=== PATIENT | female | born 1945 | race Caucasian/White ===

== ENCOUNTER → 2021-06-04 10:20 | Outpatient (CLI) | payer MEDICARE, BC, SELFPAY ==
[2021-06-08 09:40] LABS: Fecal Immunochemical Test Negative (Negative)
== END ==
PROVIDERS: PCP Physician Assistant; Visit Provider Physician Assistant
DX: Z12.11 Encounter for screening for malignant neoplasm of colon (principal)
CPT/HCPCS: 82274

== ENCOUNTER → 2021-07-01 09:03 | Outpatient (CLI) | payer MEDICARE, BC, SELFPAY ==
[2021-07-01 19:25] LABS: Add Manual Diff / Slide Review NO; Basophils Absolute Auto 100 /uL (0-100); Basophils Percent Auto 2.3 % (0-2); Eosinophils Absolute Auto 100 /uL (0-450); Eosinophils Percent Auto 2.3 % (2-4); Hematocrit 43.1 % (36-46); Hemoglobin 14.2 g/dL (12.0-16.0); Lymphocytes Absolute Auto 1800 /uL (1100-4500); Mean Corpuscular HGB Conc 32.9 % (30-36); Mean Corpuscular Hemoglobin 32.1 PG (26-34); Mean Corpuscular Volume 97.6 fL (80-100); Monocytes Absolute Auto 400 /uL (0-900); Monocytes Percent Auto 10.5 % (3-14); Neutrophils Absolute Auto 1200 /uL (1500-7000); Neutrophils Percent Auto 32.9 % (50-75); Platelet Count 190 X10^3/uL (150-400); Red Blood Cell Count 4.41 X10^6/uL (4.0-5.2); Red Cell Distribution Width 13.7 % (11.6-14.8); White Blood Cell Count 3.5 X10^3/uL (4.5-11.0)
[2021-07-01 19:42] LABS: Alanine Aminotransferase 24 IU/L (<35); Albumin Globulin Ratio 1.7 (1.0-2.8); Alkaline Phosphatase 60 U/L (38-126); Aspartate Aminotransferase 40 IU/L (14-36); BUN Creatinine Ratio 27.4 (6-22); Bilirubin Total 0.6 mg/dL (0.2-1.3); Blood Urea Nitrogen 20 mg/dL (7-17); Calcium 9.7 mg/dL (8.4-10.2); Carbon Dioxide 31 mmol/L (22-32); Chloride 106 mmol/L (98-107); Cholesterol 197 mg/dL (140-199); Estimated Glomerular Filt Rate > 60.0 mL/min (>60); Globulin 2.4 g/dL (1.7-4.1); Glucose 81 mg/dL (80-110); HDL Cholesterol 86 mg/dL (40-60); HEMOLYSIS < 15 (0-50); LDL Cholesterol Calculated 102 mg/dL (<100); Potassium 4.1 mmol/L (3.4-5.1); Sodium 140 mmol/L (137-145); Total Protein 6.4 g/dL (6.3-8.2); Triglycerides 46 mg/dL (35-150)
[2021-07-01 19:51] LABS: NT-proBNP (BNP-Adult 18+) 112 pg/mL (<125)
[2021-07-01 20:11] LABS: Thyroid Stimulating Hormone 1.46 uIU/mL (0.47-4.68)
== END ==
PROVIDERS: PCP Physician Assistant; Visit Provider Physician Assistant
DX: E78.5 Hyperlipidemia, unspecified (principal); R06.00 Dyspnea, unspecified; Z86.2 Personal history of diseases of the blood and blood-forming organs and certain disorders involving the immune mechanism
CPT/HCPCS: 80053; 80061; 83880; 84443; 85025

== ENCOUNTER → 2021-09-11 09:24 | Outpatient (CLI) | payer MEDICARE, BC, SELFPAY ==
[2021-09-11 18:58] LABS: Add Manual Diff / Slide Review NO; Basophils Absolute Auto 0 /uL (0-100); Basophils Percent Auto 0.8 % (0-2); Eosinophils Absolute Auto 100 /uL (0-450); Eosinophils Percent Auto 2.5 % (2-4); Hematocrit 43.5 % (36-46); Hemoglobin 14.5 g/dL (12.0-16.0); Lymphocytes Absolute Auto 1700 /uL (1100-4500); Lymphocytes Percent Auto 44.1 % (25-40); Mean Corpuscular HGB Conc 33.4 % (30-36); Mean Corpuscular Hemoglobin 32.2 PG (26-34); Mean Corpuscular Volume 96.5 fL (80-100); Monocytes Absolute Auto 400 /uL (0-900); Monocytes Percent Auto 10.3 % (3-14); Neutrophils Absolute Auto 1700 /uL (1500-7000); Neutrophils Percent Auto 42.3 % (50-75); Platelet Count 186 X10^3/uL (150-400); Red Blood Cell Count 4.51 X10^6/uL (4.0-5.2); Red Cell Distribution Width 13.2 % (11.6-14.8); White Blood Cell Count 3.9 X10^3/uL (4.5-11.0)
[2021-09-11 19:35] LABS: Alanine Aminotransferase 21 IU/L (<35); Albumin Globulin Ratio 1.5 (1.0-2.8); Alkaline Phosphatase 61 U/L (38-126); Aspartate Aminotransferase 34 IU/L (14-36); BUN Creatinine Ratio 20.5 (6-22); Bilirubin Total 0.4 mg/dL (0.2-1.3); Blood Urea Nitrogen 16 mg/dL (7-17); Calcium 9.7 mg/dL (8.4-10.2); Carbon Dioxide 33 mmol/L (22-32); Chloride 103 mmol/L (98-107); Estimated Glomerular Filt Rate > 60.0 mL/min (>60); Globulin 2.6 g/dL (1.7-4.1); Glucose 88 mg/dL (80-110); HEMOLYSIS < 15 (0-50); Potassium 4.4 mmol/L (3.4-5.1); Sodium 141 mmol/L (137-145); Total Protein 6.6 g/dL (6.3-8.2)
== END ==
PROVIDERS: PCP Physician Assistant; Visit Provider Physician Assistant
DX: R74.8 Abnormal levels of other serum enzymes (principal); R06.00 Dyspnea, unspecified; R79.89 Other specified abnormal findings of blood chemistry
CPT/HCPCS: 80053; 85025

== ENCOUNTER → 2022-01-11 09:08 | Outpatient (CLI) | payer MEDICARE, BC, SELFPAY ==
[2022-01-12 22:08] LABS: COVID19 - ORCAS (NP or Nasal) Negative (Negative)
== END ==
PROVIDERS: PCP Physician Assistant; Visit Provider Physician Assistant
DX: Z20.822 Contact with and (suspected) exposure to COVID-19 (principal)
CPT/HCPCS: C9803; U0003

== ENCOUNTER 2022-06-10 11:15 | Outpatient (RCR) | payer MEDICARE, BC, SELFPAY ==
--- NOTE | 2022-04-14 15:38 | PT.OPPOC ---
Physical, Occupational & Speech Therapy At [facility] Current Diagnoses Malignant melanoma of right upper limb, including shoulder (04/14/22) Visit Care Team Role Provider Type Tamara Pina PA-C Family Provider Advanced Developer Programmer Primary Care Provider Specialty: Medical Address: [address] [place] [address], [id number] Email: [email or web address] Concepcion Garrido PA-C Attending Provider Non-Staff Referring Provider Specialty: Medical Address: [address] [place] [address], [place]: [id number], [place], [address] Email: Plan Of Care PT-OP-T Assessment and Plan Start: 04/14/22 08:29 Freq: Status: Active Protocol: Document 04/14/22 11:45 AW (Rec: 04/18/22 13:21 AW [id number]) Physical Therapy Assessment Rehab Potential Rehabilitation Potential Excellent Evaluation Complexity Number of Personal Factors/Comorbidities 1-2 Number of Body Systems Impaired 1-2 Clinical Presentation at Evaluation Evolving Impairments Impairments Edema,Pain,Posture,ROM,Soft Tissue Mobility,Strength Other Concerns Barriers to Rehabilitation Pt self-reports memory impairment but has no formal diagnosis. Goals Four Impairment lymphedema risk Garbage Collector Driver Goal (LTG) Pt will teach back about lymphedema precautions and signs of impaired lymph return . LTG Duration 06/14/22 Three Impairment strength Garbage Collector Driver Goal (LTG) Pt will improve RUE strength equal to LUE to promote return to recreational activities such as swimming. LTG Duration 06/14/22 Two Impairment ROM Long-Term Goal (LTG) Pt will improve RUE ROM to within 5 degrees of LUE in abduction, extension, and internal rotation for improved ease of self-care. LTG Duration 06/14/22 One Impairment lacks HEP Garbage Collector Driver Goal (LTG) Pt will be independent with HEP to improve RUE ROM and strength. 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 She presents with decreased ROM and strength in her RUE which are expected to respond to skilled physical therapy treatment to improve her ability to complete self-care and recreational activities. Pt was measured for lymphedema assessment and all measurements are within 0.5-1. 0 cm of the unaffected side. Plan of care will include education on risk reduction for lymphedema. Physical Therapy Plan Frequency and Duration Frequency of Treatment 1-2x/week Duration of Treatment 2 months Plan of Care Start Date 04/14/22 Plan of Care End Date 06/14/22 Therapeutic Interventions Therapeutic Interventions Home Exercise Program,Joint Mobilizations,Lymphedema Management,Manual Therapy,Self -Care/Home Management,Soft Tissue Mobilization,Taping, Therapeutic Activities, Therapeutic Exercises Modalities Cold Pack/Ice Massage,Hot Packs,Ultrasound Next Visit Focus/Plan Next Note Type Treatment Note Next Visit Plan Review lymphedema precautions and provide handout. Progress scapular stabilization. Consider pulleys, pec stretch, supine lower trap activation. Plan of Care Dates Plan of Care Start Date 04/14/22 Plan of Care End Date 06/14/22 Electronically Signed by: Sharmila Avila, PT 04/18/22 3110 If you are in agreement with this Plan of Care, please return a signed and dated copy. I have reviewed this Plan of Care and certify that the skilled therapy services above are required to meet the patient?s needs. Physician Signature Date Printed Name and Credentials Clinical Instructor Signature Printed Name and Credentials
--- NOTE | 2022-04-14 15:38 | PT.OIE ---
Current Diagnoses Malignant melanoma of right upper limb, including shoulder (04/14/22) Past Medical History (Last Updated 06/03/21 @ 15:07 by Tamara Pina PA-C) Exertional dyspnea Onychomycosis Sprain of right rotator cuff capsule Weakness Visit Care Team Role Provider Type Tamara Pina PA-C Family Provider Advanced Pallet Rectifier Primary Care Provider Specialty: Medical Address: [address] [place] [address], [id number] Email: [email or web address] Concepcion Garrido PA-C Attending Provider Non-Staff Referring Provider Specialty: Medical Address: [address] [place] [address], [place]: [id number], [place], [address] Email: Physical Therapy Initial Evaluation PT-OP-A Visit Information Start: 04/14/22 08:29 Freq: Status: Active Protocol: Document 04/14/22 11:45 AW (Rec: 04/14/22 08:40 AW [id number]) Out-Patient Physical Therapy Visit Information Visit Information Visit Type Initial Evaluation Visit Start Time 10:35 Visit Stop Time 11:45 Total Visit Minutes 70 Visit Number 1 Number of SYSTEMS SOFTWARE ENGINEER Visits 0 Evaluation Information Evaluation Date 04/14/22 PT-OP-B Current Condition Start: 04/14/22 08:29 Freq: Status: Active Protocol: Document 04/14/22 11:45 AW (Rec: 04/14/22 08:40 AW [id number]) Current Condition History of Current Condition Onset Date January 2022 Current Complaints decreased R shoulder and neck ROM, needs lymphedema screen/ education History of Current Condition On 01/14/22, Iraj had right axillary sentinel lymph node biopsy x 5 and wide local excision of right upper lateral arm for melanoma. Iraj had no post op pain except some mild axillary tenderness. She used ice to minimize swelling. She travelled to [place] for 2 months. She had rotator cuff surgery 5 -10 years ago (pt unable to recall exact date due to memory loss.). When she was 7 yo, she severed a tendon in her right pinky finger and her whole arm was immobilized for months. While in the cast, she fractured her clavicle. She believes she picked up some bad postural habits during that time frame. Prior Treatments and Tests Plan to follow up every four months with dermatology. Treatment Goals Patient/Caregiver Goals Pt hopes to preserve or improve her shoulder ROM. Ultimately, she would like to get back to swimming. 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 OP-PT Pain Assessment Pain Assessment Grid Paper Pain Assessment Grid Completed Yes: Pt notes R axillary and R wrist pain with stretches PT-OP-F Manual Assessment Start: 04/14/22 08:29 Freq: Status: Active Protocol: Document 04/14/22 11:45 AW (Rec: 04/14/22 12:08 AW [id number]) Manual Assessments Soft Tissue Assessment Soft Tissue Mobility Assessment Hypertonicity noted at bilateral upper traps and right cervical paraspinals, R levator scap. Mild axillary cording noted in pectoral/lat interval which may be contributing to ROM deficits. PT-OP-J Posture/Palpation/Skin Start: 04/14/22 08:29 Freq: Status: Active Protocol: Document 04/14/22 11:45 AW (Rec: 04/14/22 12:08 AW [id number]) Posture Evaluation Comments Posture Comments Pt sits and stands with forward head and rounded shoulders. Right scapula is anteriorly tilted and winged. Left scapula also wings but is less affected. Skin Assessment Incisional Assessment Incision Appearance/Comments Right lateral shoulder incision is well healed with some evidence of adhesion. Axillary incision is well healed with good mobility. PT-OP-K Range of Motion Start: 04/14/22 08:29 Freq: Status: Active Protocol: Document 04/14/22 11:45 AW (Rec: 04/14/22 12:15 AW [id number]) Cervical Spine Range of Motion Cervical Spine Active Degrees Testing Position Sitting Flexion 50 Extension 40 Rotation Left 53 Rotation Right 40 Lateral Flexion Left 30 Lateral Flexion Right 18 ROM Limitations Soft Tissue Tightness Shoulder Goniometric Range of Motion Shoulder Right Active Shoulder ROM WFL Yes Testing Position Sitting Flexion 154 Extension 25 Abduction 160 Internal Rotation Behind Back (text) T4 Comments Flexion and abduction wtih significant shoulder hiking. Left Active Shoulder ROM WFL Yes Testing Position Sitting Flexion 160 Extension 55 Abduction 173 Internal Rotation Behind Back (text) C7 Elbow/Forearm Range of Motion Elbow/Forearm bilat Elbow/Forearm ROM WFL Yes PT-OP-M Strength Start: 04/14/22 08:29 Freq: Status: Active Protocol: Document 04/14/22 11:45 AW (Rec: 04/14/22 12:15 AW [id number]) Shoulder Strength Shoulder Manual Muscle Testing Right Flexion 4+ Good+ Extension 4+ Good+ Abduction (C5) 4+ Good+ External Rotation 4+ Good+ Internal Rotation 4+ Good+ Left Flexion 5 Normal Extension 5 Normal Abduction (C5) 5 Normal External Rotation 5 Normal Internal Rotation 5 Normal PT-OP-N Lymphedema Start: 04/14/22 08:29 Freq: Status: Active Protocol: Document 04/14/22 11:45 AW (Rec: 04/14/22 12:15 AW [id number]) Lymphedema Measurements Upper Extremity Circumference Measurements Right Affected MCP 18 cm Dorsum of Hand 18.1 cm Wrist 16.6 cm 10 cm From Wrist Crease 19.4 cm 20 cm From Wrist Crease 24.7 cm 30 cm From Wrist Crease 26.8 cm 40 cm From Wrist Crease 27.8 cm Elbow Joint 25 cm Left Unaffected MCP 18 cm Dorsum of Hand 18.3 cm Wrist 16.6 cm 10 cm From Wrist Crease 19.3 cm 20 cm From Wrist Crease 24.3 cm 30 cm From Wrist Crease 26 cm 40 cm From Wrist Crease 27.3 cm Elbow Joint 24.1 cm PT-OP-Q Treatments Start: 04/14/22 08:29 Freq: Status: Active Protocol: Document 04/14/22 11:45 AW (Rec: 04/18/22 13:21 AW [id number]) Therapeutic Exercises Sitting Exercises UT stretch Sitting Exercise Name UT stretch Side bilateral Reps/Minutes 30 SH x 4 Comments HEP scapular retraction Sitting Exercise Name scapular retraction Side bilateral Resistance AROM Reps/Minutes 5SH x 10 Comments HEP Standing Exercises wall slides Standing Exercise Name wall slides - flexion, abduction Side right Comments HEP AAROM Standing Exercise Name AAROM - extension Side right Equipment Used dowel Reps/Minutes 5 SH x 10 Comments HEP Self-Care/Home Management Treatment Education Patient Education Home Exercise Program Other Education Reviewed results of evaluation and proposed plan of care centered on ROM and strength for right shoulder and trunk. Pt understood and agreed. Lymphedema Treatment Patient Education Lymphedema Pathology verbal education Lymphedema Precautions handout provided Other Educated pt on lymphatic system function, risk of lymphedema, signs to be alert for. PT-OP-T Assessment and Plan Start: 04/14/22 08:29 Freq: Status: Active Protocol: Document 04/14/22 11:45 AW (Rec: 04/18/22 13:21 AW [id number]) Physical Therapy Assessment Rehab Potential Rehabilitation Potential Excellent Evaluation Complexity Number of Personal Factors/Comorbidities 1-2 Number of Body Systems Impaired 1-2 Clinical Presentation at Evaluation Evolving Impairments Impairments Edema,Pain,Posture,ROM,Soft Tissue Mobility,Strength Other Concerns Barriers to Rehabilitation Pt self-reports memory impairment but has no formal diagnosis. Goals Four Impairment lymphedema risk Associate Professor Of Theatre Goal (LTG) Pt will teach back about lymphedema precautions and signs of impaired lymph return . LTG Duration 06/14/22 Three Impairment strength Correction Goal (LTG) Pt will improve RUE strength equal to LUE to promote return to recreational activities such as swimming. LTG Duration 06/14/22 Two Impairment ROM Correction Goal (LTG) Pt will improve RUE ROM to within 5 degrees of LUE in abduction, extension, and internal rotation for improved ease of self-care. LTG Duration 06/14/22 One Impairment lacks HEP Correction Goal (LTG) Pt will be independent with HEP to improve RUE ROM and strength. 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 She presents with decreased ROM and strength in her RUE which are expected to respond to skilled physical therapy treatment to improve her ability to complete self-care and recreational activities. Pt was measured for lymphedema assessment and all measurements are within 0.5-1. 0 cm of the unaffected side. Plan of care will include education on risk reduction for lymphedema. Physical Therapy Plan Frequency and Duration Frequency of Treatment 1-2x/week Duration of Treatment 2 months Plan of Care Start Date 04/14/22 Plan of Care End Date 06/14/22 Therapeutic Interventions Therapeutic Interventions Home Exercise Program,Joint Mobilizations,Lymphedema Management,Manual Therapy,Self -Care/Home Management,Soft Tissue Mobilization,Taping, Therapeutic Activities, Therapeutic Exercises Modalities Cold Pack/Ice Massage,Hot Packs,Ultrasound Next Visit Focus/Plan Next Note Type Treatment Note Next Visit Plan Review lymphedema precautions and provide handout. Progress scapular stabilization. Consider pulleys, pec stretch, supine lower trap activation.
--- NOTE | 2022-04-20 12:16 | PT.OTN ---
Current Diagnoses Malignant melanoma of right upper limb, including shoulder (04/20/22) Physical Therapy Treatment Note PT-OP-A Visit Information Start: 04/14/22 08:29 Freq: Status: Active Protocol: Document 04/20/22 11:21 AW (Rec: 04/20/22 12:16 AW [id number]) Out-Patient Physical Therapy Visit Information Visit Information Visit Type Treatment Note Visit Start Time 11:15 Visit Stop Time 12:00 Total Visit Minutes 45 Visit Number 2 Number of IMPLANT COORDINATOR Visits 0 Evaluation Information Evaluation Date 04/14/22 PT-OP-B Current Condition Start: 04/14/22 08:29 Freq: Status: Active Protocol: Document 04/14/22 11:45 AW (Rec: 04/14/22 08:40 AW [id number]) Current Condition History of Current Condition Onset Date January 2022 Current Complaints decreased R shoulder and neck ROM, needs lymphedema screen/ education History of Current Condition On 01/14/22, Iraj had right axillary sentinel lymph node biopsy x 5 and wide local excision of right upper lateral arm for melanoma. Iraj had no post op pain except some mild axillary tenderness. She used ice to minimize swelling. She travelled to [place] for 2 months. She had rotator cuff surgery 5 -10 years ago (pt unable to recall exact date due to memory loss.). When she was 7 yo, she severed a tendon in her right pinky finger and her whole arm was immobilized for months. While in the cast, she fractured her clavicle. She believes she picked up some bad postural habits during that time frame. Prior Treatments and Tests Plan to follow up every four months with dermatology. Treatment Goals Patient/Caregiver Goals Pt hopes to preserve or improve her shoulder ROM. Ultimately, she would like to get back to swimming. Personal Factors Other Personal Factors That May Effect Pt reports memory loss for Therapy/Recovery over 20 years PT-OP-C Subjective Start: 04/14/22 08:29 Freq: Status: Active Protocol: Document 04/20/22 11:21 AW (Rec: 04/20/22 12:16 AW [id number]) OP-PT Subjective Patient Comments Patient Comments I did the exercises but I have some questions about a few. PT-OP-F Manual Assessment Start: 04/14/22 08:29 Freq: Status: Active Protocol: Document 04/14/22 11:45 AW (Rec: 04/14/22 12:08 AW [id number]) Manual Assessments Soft Tissue Assessment Soft Tissue Mobility Assessment Hypertonicity noted at bilateral upper traps and right cervical paraspinals, R levator scap. Mild axillary cording noted in pectoral/lat interval which may be contributing to ROM deficits. PT-OP-J Posture/Palpation/Skin Start: 04/14/22 08:29 Freq: Status: Active Protocol: Document 04/14/22 11:45 AW (Rec: 04/14/22 12:08 AW [id number]) Posture Evaluation Comments Posture Comments Pt sits and stands with forward head and rounded shoulders. Right scapula is anteriorly tilted and winged. Left scapula also wings but is less affected. Skin Assessment Incisional Assessment Incision Appearance/Comments Right lateral shoulder incision is well healed with some evidence of adhesion. Axillary incision is well healed with good mobility. PT-OP-K Range of Motion Start: 04/14/22 08:29 Freq: Status: Active Protocol: Document 04/14/22 11:45 AW (Rec: 04/14/22 12:15 AW [id number]) Cervical Spine Range of Motion Cervical Spine Active Degrees Testing Position Sitting Flexion 50 Extension 40 Rotation Left 53 Rotation Right 40 Lateral Flexion Left 30 Lateral Flexion Right 18 ROM Limitations Soft Tissue Tightness Shoulder Goniometric Range of Motion Shoulder Right Active Shoulder ROM WFL Yes Testing Position Sitting Flexion 154 Extension 25 Abduction 160 Internal Rotation Behind Back (text) T4 Comments Flexion and abduction wtih significant shoulder hiking. Left Active Shoulder ROM WFL Yes Testing Position Sitting Flexion 160 Extension 55 Abduction 173 Internal Rotation Behind Back (text) C7 Elbow/Forearm Range of Motion Elbow/Forearm bilat Elbow/Forearm ROM WFL Yes PT-OP-M Strength Start: 04/14/22 08:29 Freq: Status: Active Protocol: Document 04/14/22 11:45 AW (Rec: 04/14/22 12:15 AW [id number]) Shoulder Strength Shoulder Manual Muscle Testing Right Flexion 4+ Good+ Extension 4+ Good+ Abduction (C5) 4+ Good+ External Rotation 4+ Good+ Internal Rotation 4+ Good+ Left Flexion 5 Normal Extension 5 Normal Abduction (C5) 5 Normal External Rotation 5 Normal Internal Rotation 5 Normal PT-OP-N Lymphedema Start: 04/14/22 08:29 Freq: Status: Active Protocol: Document 04/14/22 11:45 AW (Rec: 04/14/22 12:15 AW [id number]) Lymphedema Measurements Upper Extremity Circumference Measurements Right Affected MCP 18 cm Dorsum of Hand 18.1 cm Wrist 16.6 cm 10 cm From Wrist Crease 19.4 cm 20 cm From Wrist Crease 24.7 cm 30 cm From Wrist Crease 26.8 cm 40 cm From Wrist Crease 27.8 cm Elbow Joint 25 cm Left Unaffected MCP 18 cm Dorsum of Hand 18.3 cm Wrist 16.6 cm 10 cm From Wrist Crease 19.3 cm 20 cm From Wrist Crease 24.3 cm 30 cm From Wrist Crease 26 cm 40 cm From Wrist Crease 27.3 cm Elbow Joint 24.1 cm PT-OP-Q Treatments Start: 04/14/22 08:29 Freq: Status: Active Protocol: Document 04/20/22 11:21 AW (Rec: 04/20/22 12:16 AW [id number]) Cardio Equipment Upper Body Ergometer (UBE) Duration (Minutes) 5 RPM 60 Height 2 Other fwd/bwd Therapeutic Exercises Supine Exercises rhythmic stab Supine Exercise Name rhythmic stab Side right Resistance vs PT resistance multiplanar and varying lever arm lengths scap protraction Supine Exercise Name scap protraction Side bilateral Resistance AROM Reps/Minutes x20 Comments HEP low trap activation Supine Exercise Name low trap activation Side bilateral Equipment Used dull sensation right mid-back, has difficulty engaging, better than seated Comments HEP Sidelying Exercises PNF R scap Sidelying Exercise Name PNF R scap Side right Comments ant elev, pos dep throughout ROM. see assessment. Sitting Exercises pulleys Sitting Exercise Name pulleys - flexion, scaption Side right Comments cued full ROM, deep breath at end range UT stretch Sitting Exercise Name UT stretch Side bilateral Reps/Minutes 30 SH x 4 Comments HEP review scapular retraction Comments pt had difficulty at home; switched to supine posture press Self-Care/Home Management Treatment Education Patient Education Home Exercise Program Other Education Added supine low trap and supine scap protraction for HEP. PT-OP-T Assessment and Plan Start: 04/14/22 08:29 Freq: Status: Active Protocol: Document 04/20/22 11:21 AW (Rec: 04/20/22 12:16 AW [id number]) Physical Therapy Assessment Other Concerns Barriers to Rehabilitation Pt self-reports memory impairment but has no formal diagnosis. Goals Four Impairment lymphedema risk Release Of Information Clerk Goal (LTG) Pt will teach back about lymphedema precautions and signs of impaired lymph return . LTG Duration 06/14/22 Three Impairment strength Usp Goal (LTG) Pt will improve RUE strength equal to LUE to promote return to recreational activities such as swimming. LTG Duration 06/14/22 Two Impairment ROM Release Of Information Clerk Goal (LTG) Pt will improve RUE ROM to within 5 degrees of LUE in abduction, extension, and internal rotation for improved ease of self-care. LTG Duration 06/14/22 One Impairment lacks HEP Usp Goal (LTG) Pt will be independent with HEP to improve RUE ROM and strength. LTG Duration 06/14/22 Assessment Summary Assessment Iraj has difficulty finding low trap and struggles with seated retraction exercise. Switched to supine posture press which pt stated improved her ability to activate lower trap. Trialed PNF pattern R scapula for anterior elevation /posterior depression. She improved her ability to pull from mid-range or retracted position but struggled to initiate movement from end- range anterior elevation. Physical Therapy Plan Frequency and Duration Frequency of Treatment 1-2x/week Duration of Treatment 2 months Plan of Care Start Date 04/14/22 Plan of Care End Date 06/14/22 Therapeutic Interventions Therapeutic Interventions Home Exercise Program,Joint Mobilizations,Lymphedema Management,Manual Therapy,Self -Care/Home Management,Soft Tissue Mobilization,Taping, Therapeutic Activities, Therapeutic Exercises Modalities Cold Pack/Ice Massage,Hot Packs,Ultrasound Next Visit Focus/Plan Next Note Type Treatment Note Next Visit Plan Continue working scapular stabilization with sidelying PNF through entire ROM. Review UT stretch, consider adding lev scap stretch. Consider pec stretch supine or doorway.
--- NOTE | 2022-04-22 11:29 | PT.OTN ---
Current Diagnoses Malignant melanoma of right upper limb, including shoulder (04/22/22) Physical Therapy Treatment Note PT-OP-A Visit Information Start: 04/14/22 08:29 Freq: Status: Active Protocol: Document 04/22/22 08:45 AW (Rec: 04/22/22 11:28 AW [id number]) Out-Patient Physical Therapy Visit Information Visit Information Visit Type Treatment Note Visit Start Time 10:30 Visit Stop Time 11:15 Total Visit Minutes 45 Visit Number 3 Number of RN EXAMINER Visits 0 Evaluation Information Evaluation Date 04/14/22 PT-OP-B Current Condition Start: 04/14/22 08:29 Freq: Status: Active Protocol: Document 04/14/22 11:45 AW (Rec: 04/14/22 08:40 AW [id number]) Current Condition History of Current Condition Onset Date January 2022 Current Complaints decreased R shoulder and neck ROM, needs lymphedema screen/ education History of Current Condition On 01/14/22, Iraj had right axillary sentinel lymph node biopsy x 5 and wide local excision of right upper lateral arm for melanoma. Iraj had no post op pain except some mild axillary tenderness. She used ice to minimize swelling. She travelled to [place] for 2 months. She had rotator cuff surgery 5 -10 years ago (pt unable to recall exact date due to memory loss.). When she was 7 yo, she severed a tendon in her right pinky finger and her whole arm was immobilized for months. While in the cast, she fractured her clavicle. She believes she picked up some bad postural habits during that time frame. Prior Treatments and Tests Plan to follow up every four months with dermatology. Treatment Goals Patient/Caregiver Goals Pt hopes to preserve or improve her shoulder ROM. Ultimately, she would like to get back to swimming. 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 PT-OP-F Manual Assessment Start: 04/14/22 08:29 Freq: Status: Active Protocol: Document 04/14/22 11:45 AW (Rec: 04/14/22 12:08 AW [id number]) Manual Assessments Soft Tissue Assessment Soft Tissue Mobility Assessment Hypertonicity noted at bilateral upper traps and right cervical paraspinals, R levator scap. Mild axillary cording noted in pectoral/lat interval which may be contributing to ROM deficits. PT-OP-J Posture/Palpation/Skin Start: 04/14/22 08:29 Freq: Status: Active Protocol: Document 04/14/22 11:45 AW (Rec: 04/14/22 12:08 AW [id number]) Posture Evaluation Comments Posture Comments Pt sits and stands with forward head and rounded shoulders. Right scapula is anteriorly tilted and winged. Left scapula also wings but is less affected. Skin Assessment Incisional Assessment Incision Appearance/Comments Right lateral shoulder incision is well healed with some evidence of adhesion. Axillary incision is well healed with good mobility. PT-OP-K Range of Motion Start: 04/14/22 08:29 Freq: Status: Active Protocol: Document 04/14/22 11:45 AW (Rec: 04/14/22 12:15 AW [id number]) Cervical Spine Range of Motion Cervical Spine Active Degrees Testing Position Sitting Flexion 50 Extension 40 Rotation Left 53 Rotation Right 40 Lateral Flexion Left 30 Lateral Flexion Right 18 ROM Limitations Soft Tissue Tightness Shoulder Goniometric Range of Motion Shoulder Right Active Shoulder ROM WFL Yes Testing Position Sitting Flexion 154 Extension 25 Abduction 160 Internal Rotation Behind Back (text) T4 Comments Flexion and abduction wtih significant shoulder hiking. Left Active Shoulder ROM WFL Yes Testing Position Sitting Flexion 160 Extension 55 Abduction 173 Internal Rotation Behind Back (text) C7 Elbow/Forearm Range of Motion Elbow/Forearm bilat Elbow/Forearm ROM WFL Yes PT-OP-M Strength Start: 04/14/22 08:29 Freq: Status: Active Protocol: Document 04/14/22 11:45 AW (Rec: 04/14/22 12:15 AW [id number]) Shoulder Strength Shoulder Manual Muscle Testing Right Flexion 4+ Good+ Extension 4+ Good+ Abduction (C5) 4+ Good+ External Rotation 4+ Good+ Internal Rotation 4+ Good+ Left Flexion 5 Normal Extension 5 Normal Abduction (C5) 5 Normal External Rotation 5 Normal Internal Rotation 5 Normal PT-OP-N Lymphedema Start: 04/14/22 08:29 Freq: Status: Active Protocol: Document 04/14/22 11:45 AW (Rec: 04/14/22 12:15 AW [id number]) Lymphedema Measurements Upper Extremity Circumference Measurements Right Affected MCP 18 cm Dorsum of Hand 18.1 cm Wrist 16.6 cm 10 cm From Wrist Crease 19.4 cm 20 cm From Wrist Crease 24.7 cm 30 cm From Wrist Crease 26.8 cm 40 cm From Wrist Crease 27.8 cm Elbow Joint 25 cm Left Unaffected MCP 18 cm Dorsum of Hand 18.3 cm Wrist 16.6 cm 10 cm From Wrist Crease 19.3 cm 20 cm From Wrist Crease 24.3 cm 30 cm From Wrist Crease 26 cm 40 cm From Wrist Crease 27.3 cm Elbow Joint 24.1 cm PT-OP-Q Treatments Start: 04/14/22 08:29 Freq: Status: Active Protocol: Document 04/22/22 08:45 AW (Rec: 04/22/22 11:28 AW [id number]) Cardio Equipment Upper Body Ergometer (UBE) Duration (Minutes) 5 RPM 60 Seat Position 9 Height 2 Other fwd/bwd Therapeutic Exercises Supine Exercises pec stretch Supine Exercise Name pec stretch Side bilateral Equipment Used 1/2 foam roll Reps/Minutes 60' x 2 Comments for HEP scap protraction Supine Exercise Name scap protraction Side bilateral Resistance AROM Equipment Used 1/2 foam roll Reps/Minutes x20 Comments HEP review; difficulty controlling eccentric phase low trap activation Supine Exercise Name low trap activation Side bilateral Equipment Used improved control; better able to find low trap Comments HEP review Sidelying Exercises PNF R scap Sidelying Exercise Name PNF R scap Side right Comments ant elev, pos dep throughout ROM Sitting Exercises pulleys Sitting Exercise Name pulleys - flexion, scaption Side right Comments cued full ROM, deep breath at end range UT stretch Sitting Exercise Name UT stretch Comments discussed; did not perform scapular retraction Sitting Exercise Name scap retract Resistance vs PT manual resistance Comments improved LT activation Standing Exercises resisted row Standing Exercise Name resisted row Side bilateral Resistance TB1 Reps/Minutes 2x15 Comments HEP Self-Care/Home Management Treatment Education Patient Education Home Exercise Program Other Education Access Code: [email or web address] URL: [email or web address] Consolidated all to once access code today. PT-OP-T Assessment and Plan Start: 04/14/22 08:29 Freq: Status: Active Protocol: Document 04/22/22 08:45 AW (Rec: 04/22/22 11:28 AW [id number]) Physical Therapy Assessment Other Concerns Barriers to Rehabilitation Pt self-reports memory impairment but has no formal diagnosis. Goals Four Impairment lymphedema risk Corporate Security Officer Goal (LTG) Pt will teach back about lymphedema precautions and signs of impaired lymph return . LTG Duration 06/14/22 Three Impairment strength Fci Goal (LTG) Pt will improve RUE strength equal to LUE to promote return to recreational activities such as swimming. LTG Duration 06/14/22 Two Impairment ROM Corporate Security Officer Goal (LTG) Pt will improve RUE ROM to within 5 degrees of LUE in abduction, extension, and internal rotation for improved ease of self-care. LTG Duration 06/14/22 One Impairment lacks HEP Fci Goal (LTG) Pt will be independent with HEP to improve RUE ROM and strength. LTG Duration 06/14/22 Assessment Summary Assessment Iraj is improving in her scapular control and performed resisted rows today with no shoulder hiking, good control of all phases. She does continue to complain of R S/C joint irritation and crackling in her right scapula with all resisted movements. Physical Therapy Plan Frequency and Duration Frequency of Treatment 1-2x/week Duration of Treatment 2 months Plan of Care Start Date 04/14/22 Plan of Care End Date 06/14/22 Therapeutic Interventions Therapeutic Interventions Home Exercise Program,Joint Mobilizations,Lymphedema Management,Manual Therapy,Self -Care/Home Management,Soft Tissue Mobilization,Taping, Therapeutic Activities, Therapeutic Exercises Modalities Cold Pack/Ice Massage,Hot Packs,Ultrasound Next Visit Focus/Plan Next Note Type Treatment Note Next Visit Plan Continue working scapular stabilization with sidelying PNF through entire ROM. Review UT, pec stretches, consider adding lev scap stretch. Add SL open book and right shoulder strengthening with TB
--- NOTE | 2022-04-29 11:18 | PT.OTN ---
Current Diagnoses Malignant melanoma of right upper limb, including shoulder (04/29/22) Physical Therapy Treatment Note PT-OP-A Visit Information Start: 04/14/22 08:29 Freq: Status: Active Protocol: Document 04/29/22 10:33 AW (Rec: 04/29/22 11:16 AW [id number]) Out-Patient Physical Therapy Visit Information Visit Information Visit Type Treatment Note Visit Start Time 10:30 Visit Stop Time 11:15 Total Visit Minutes 45 Visit Number 4 Number of CORPORATE STRATEGY ASSOCIATE Visits 0 Evaluation Information Evaluation Date 04/14/22 PT-OP-B Current Condition Start: 04/14/22 08:29 Freq: Status: Active Protocol: Document 04/14/22 11:45 AW (Rec: 04/14/22 08:40 AW [id number]) Current Condition History of Current Condition Onset Date January 2022 Current Complaints decreased R shoulder and neck ROM, needs lymphedema screen/ education History of Current Condition On 01/14/22, Iraj had right axillary sentinel lymph node biopsy x 5 and wide local excision of right upper lateral arm for melanoma. Iraj had no post op pain except some mild axillary tenderness. She used ice to minimize swelling. She travelled to [place] for 2 months. She had rotator cuff surgery 5 -10 years ago (pt unable to recall exact date due to memory loss.). When she was 7 yo, she severed a tendon in her right pinky finger and her whole arm was immobilized for months. While in the cast, she fractured her clavicle. She believes she picked up some bad postural habits during that time frame. Prior Treatments and Tests Plan to follow up every four months with dermatology. Treatment Goals Patient/Caregiver Goals Pt hopes to preserve or improve her shoulder ROM. Ultimately, she would like to get back to swimming. 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 PT-OP-F Manual Assessment Start: 04/14/22 08:29 Freq: Status: Active Protocol: Document 04/14/22 11:45 AW (Rec: 04/14/22 12:08 AW [id number]) Manual Assessments Soft Tissue Assessment Soft Tissue Mobility Assessment Hypertonicity noted at bilateral upper traps and right cervical paraspinals, R levator scap. Mild axillary cording noted in pectoral/lat interval which may be contributing to ROM deficits. PT-OP-J Posture/Palpation/Skin Start: 04/14/22 08:29 Freq: Status: Active Protocol: Document 04/14/22 11:45 AW (Rec: 04/14/22 12:08 AW [id number]) Posture Evaluation Comments Posture Comments Pt sits and stands with forward head and rounded shoulders. Right scapula is anteriorly tilted and winged. Left scapula also wings but is less affected. Skin Assessment Incisional Assessment Incision Appearance/Comments Right lateral shoulder incision is well healed with some evidence of adhesion. Axillary incision is well healed with good mobility. PT-OP-K Range of Motion Start: 04/14/22 08:29 Freq: Status: Active Protocol: Document 04/14/22 11:45 AW (Rec: 04/14/22 12:15 AW [id number]) Cervical Spine Range of Motion Cervical Spine Active Degrees Testing Position Sitting Flexion 50 Extension 40 Rotation Left 53 Rotation Right 40 Lateral Flexion Left 30 Lateral Flexion Right 18 ROM Limitations Soft Tissue Tightness Shoulder Goniometric Range of Motion Shoulder Right Active Shoulder ROM WFL Yes Testing Position Sitting Flexion 154 Extension 25 Abduction 160 Internal Rotation Behind Back (text) T4 Comments Flexion and abduction wtih significant shoulder hiking. Left Active Shoulder ROM WFL Yes Testing Position Sitting Flexion 160 Extension 55 Abduction 173 Internal Rotation Behind Back (text) C7 Elbow/Forearm Range of Motion Elbow/Forearm bilat Elbow/Forearm ROM WFL Yes PT-OP-M Strength Start: 04/14/22 08:29 Freq: Status: Active Protocol: Document 04/14/22 11:45 AW (Rec: 04/14/22 12:15 AW [id number]) Shoulder Strength Shoulder Manual Muscle Testing Right Flexion 4+ Good+ Extension 4+ Good+ Abduction (C5) 4+ Good+ External Rotation 4+ Good+ Internal Rotation 4+ Good+ Left Flexion 5 Normal Extension 5 Normal Abduction (C5) 5 Normal External Rotation 5 Normal Internal Rotation 5 Normal PT-OP-N Lymphedema Start: 04/14/22 08:29 Freq: Status: Active Protocol: Document 04/14/22 11:45 AW (Rec: 04/14/22 12:15 AW [id number]) Lymphedema Measurements Upper Extremity Circumference Measurements Right Affected MCP 18 cm Dorsum of Hand 18.1 cm Wrist 16.6 cm 10 cm From Wrist Crease 19.4 cm 20 cm From Wrist Crease 24.7 cm 30 cm From Wrist Crease 26.8 cm 40 cm From Wrist Crease 27.8 cm Elbow Joint 25 cm Left Unaffected MCP 18 cm Dorsum of Hand 18.3 cm Wrist 16.6 cm 10 cm From Wrist Crease 19.3 cm 20 cm From Wrist Crease 24.3 cm 30 cm From Wrist Crease 26 cm 40 cm From Wrist Crease 27.3 cm Elbow Joint 24.1 cm PT-OP-Q Treatments Start: 04/14/22 08:29 Freq: Status: Active Protocol: Document 04/29/22 10:33 AW (Rec: 04/29/22 11:16 AW [id number]) Cardio Equipment Upper Body Ergometer (UBE) Duration (Minutes) 5 RPM 60 Seat Position 9 Height 2 Other fwd/bwd Therapeutic Exercises Supine Exercises hAbd Supine Exercise Name hAbd Side bilateral Resistance TB1 Comments HEP scap protraction Supine Exercise Name scap protraction Side bilateral Resistance 1# db Reps/Minutes x20 Comments HEP review; difficulty controlling eccentric phase low trap activation Supine Exercise Name low trap activation Side bilateral Equipment Used improved control; better able to find low trap Comments HEP review Sidelying Exercises open book Sidelying Exercise Name open book Side right Comments poor tolerance of end range position (shortened rhomboids) PNF R scap Sidelying Exercise Name PNF R scap Side right Comments ant elev, pos dep throughout ROM Sitting Exercises UT stretch Sitting Exercise Name UT stretch Comments discussed; did not perform scapular retraction Sitting Exercise Name scap depression Resistance vs PT manual resistance Comments improved LT activation Standing Exercises push up plus Standing Exercise Name push up plus at wall Comments HEP Self-Care/Home Management Treatment Education Other Education Access Code: [email or web address] URL: [email or web address] Consolidated all to once access code today. PT-OP-T Assessment and Plan Start: 04/14/22 08:29 Freq: Status: Active Protocol: Document 04/29/22 10:33 AW (Rec: 04/29/22 11:16 AW [id number]) Physical Therapy Assessment Other Concerns Barriers to Rehabilitation Pt self-reports memory impairment but has no formal diagnosis. Goals Four Impairment lymphedema risk Correction Goal (LTG) Pt will teach back about lymphedema precautions and signs of impaired lymph return . LTG Duration 06/14/22 Three Impairment strength Correction Goal (LTG) Pt will improve RUE strength equal to LUE to promote return to recreational activities such as swimming. LTG Duration 06/14/22 Two Impairment ROM Diversional Therapist'S Assistant Goal (LTG) Pt will improve RUE ROM to within 5 degrees of LUE in abduction, extension, and internal rotation for improved ease of self-care. LTG Duration 06/14/22 One Impairment lacks HEP Correction Goal (LTG) Pt will be independent with HEP to improve RUE ROM and strength. LTG Duration 06/14/22 Assessment Summary Assessment Pt improving in eccentric control of protraction. Added horizontal abduction in supine and wall push up plus to HEP. Pt plans to keep next appt and then maybe check in after a month for progress. Physical Therapy Plan Frequency and Duration Frequency of Treatment 1-2x/week Duration of Treatment 2 months Plan of Care Start Date 04/14/22 Plan of Care End Date 06/14/22 Therapeutic Interventions Therapeutic Interventions Home Exercise Program,Joint Mobilizations,Lymphedema Management,Manual Therapy,Self -Care/Home Management,Soft Tissue Mobilization,Taping, Therapeutic Activities, Therapeutic Exercises Modalities Cold Pack/Ice Massage,Hot Packs,Ultrasound Next Visit Focus/Plan Next Note Type Treatment Note Next Visit Plan Continue working scapular stabilization with sidelying PNF through entire ROM. Review UT, pec stretches, consider adding lev scap stretch. Add SL open book and right shoulder strengthening with TB
--- NOTE | 2022-05-06 12:16 | PT.OTN ---
Current Diagnoses Malignant melanoma of right upper limb, including shoulder (05/06/22) Physical Therapy Treatment Note PT-OP-A Visit Information Start: 04/14/22 08:29 Freq: Status: Active Protocol: Document 05/06/22 10:34 AW (Rec: 05/06/22 11:17 AW [id number]) Out-Patient Physical Therapy Visit Information Visit Information Visit Type Treatment Note Visit Start Time 10:30 Visit Stop Time 11:15 Total Visit Minutes 45 Visit Number 5 Number of HULL INSPECTOR Visits 0 Evaluation Information Evaluation Date 04/14/22 PT-OP-B Current Condition Start: 04/14/22 08:29 Freq: Status: Active Protocol: Document 04/14/22 11:45 AW (Rec: 04/14/22 08:40 AW [id number]) Current Condition History of Current Condition Onset Date January 2022 Current Complaints decreased R shoulder and neck ROM, needs lymphedema screen/ education History of Current Condition On 01/14/22, Iraj had right axillary sentinel lymph node biopsy x 5 and wide local excision of right upper lateral arm for melanoma. Iraj had no post op pain except some mild axillary tenderness. She used ice to minimize swelling. She travelled to [place] for 2 months. She had rotator cuff surgery 5 -10 years ago (pt unable to recall exact date due to memory loss.). When she was 7 yo, she severed a tendon in her right pinky finger and her whole arm was immobilized for months. While in the cast, she fractured her clavicle. She believes she picked up some bad postural habits during that time frame. Prior Treatments and Tests Plan to follow up every four months with dermatology. Treatment Goals Patient/Caregiver Goals Pt hopes to preserve or improve her shoulder ROM. Ultimately, she would like to get back to swimming. 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 PT-OP-F Manual Assessment Start: 04/14/22 08:29 Freq: Status: Active Protocol: Document 04/14/22 11:45 AW (Rec: 04/14/22 12:08 AW [id number]) Manual Assessments Soft Tissue Assessment Soft Tissue Mobility Assessment Hypertonicity noted at bilateral upper traps and right cervical paraspinals, R levator scap. Mild axillary cording noted in pectoral/lat interval which may be contributing to ROM deficits. PT-OP-J Posture/Palpation/Skin Start: 04/14/22 08:29 Freq: Status: Active Protocol: Document 04/14/22 11:45 AW (Rec: 04/14/22 12:08 AW [id number]) Posture Evaluation Comments Posture Comments Pt sits and stands with forward head and rounded shoulders. Right scapula is anteriorly tilted and winged. Left scapula also wings but is less affected. Skin Assessment Incisional Assessment Incision Appearance/Comments Right lateral shoulder incision is well healed with some evidence of adhesion. Axillary incision is well healed with good mobility. PT-OP-K Range of Motion Start: 04/14/22 08:29 Freq: Status: Active Protocol: Document 04/14/22 11:45 AW (Rec: 04/14/22 12:15 AW [id number]) Cervical Spine Range of Motion Cervical Spine Active Degrees Testing Position Sitting Flexion 50 Extension 40 Rotation Left 53 Rotation Right 40 Lateral Flexion Left 30 Lateral Flexion Right 18 ROM Limitations Soft Tissue Tightness Shoulder Goniometric Range of Motion Shoulder Right Active Shoulder ROM WFL Yes Testing Position Sitting Flexion 154 Extension 25 Abduction 160 Internal Rotation Behind Back (text) T4 Comments Flexion and abduction wtih significant shoulder hiking. Left Active Shoulder ROM WFL Yes Testing Position Sitting Flexion 160 Extension 55 Abduction 173 Internal Rotation Behind Back (text) C7 Elbow/Forearm Range of Motion Elbow/Forearm bilat Elbow/Forearm ROM WFL Yes PT-OP-M Strength Start: 04/14/22 08:29 Freq: Status: Active Protocol: Document 04/14/22 11:45 AW (Rec: 04/14/22 12:15 AW [id number]) Shoulder Strength Shoulder Manual Muscle Testing Right Flexion 4+ Good+ Extension 4+ Good+ Abduction (C5) 4+ Good+ External Rotation 4+ Good+ Internal Rotation 4+ Good+ Left Flexion 5 Normal Extension 5 Normal Abduction (C5) 5 Normal External Rotation 5 Normal Internal Rotation 5 Normal PT-OP-N Lymphedema Start: 04/14/22 08:29 Freq: Status: Active Protocol: Document 04/14/22 11:45 AW (Rec: 04/14/22 12:15 AW [id number]) Lymphedema Measurements Upper Extremity Circumference Measurements Right Affected MCP 18 cm Dorsum of Hand 18.1 cm Wrist 16.6 cm 10 cm From Wrist Crease 19.4 cm 20 cm From Wrist Crease 24.7 cm 30 cm From Wrist Crease 26.8 cm 40 cm From Wrist Crease 27.8 cm Elbow Joint 25 cm Left Unaffected MCP 18 cm Dorsum of Hand 18.3 cm Wrist 16.6 cm 10 cm From Wrist Crease 19.3 cm 20 cm From Wrist Crease 24.3 cm 30 cm From Wrist Crease 26 cm 40 cm From Wrist Crease 27.3 cm Elbow Joint 24.1 cm PT-OP-Q Treatments Start: 04/14/22 08:29 Freq: Status: Active Protocol: Document 05/06/22 10:34 AW (Rec: 05/06/22 11:17 AW [id number]) Therapeutic Exercises Supine Exercises hAbd Supine Exercise Name hAbd Side bilateral Resistance TB2 - wide hardware developer to begin; narrowed as tolerated Equipment Used on half foam roll Comments HEP pec stretch Supine Exercise Name pec stretch Side bilateral Equipment Used 1/2 foam roll Reps/Minutes 60' x 2 Comments for HEP Sidelying Exercises open book Sidelying Exercise Name open book Side right Comments poor tolerance of end range initially but improves with reps PNF R scap Sidelying Exercise Name PNF R scap Side right Comments ant elev, pos dep throughout ROM Sitting Exercises pulleys Sitting Exercise Name pulleys - flexion, scaption Side right Comments cued full ROM, deep breath at end range Standing Exercises diaphragmatic breathing Standing Exercise Name diaphragmatic breathing Comments hands on chest and abdomen; focus on expanding abdomen resisted GH flexion Standing Exercise Name resisted GH flexion Side right Resistance TB1 push up plus Standing Exercise Name push up plus at wall Comments discussed progression, using increasingly lower surfaces. resisted row Standing Exercise Name resisted row Side bilateral Resistance TB1 Reps/Minutes 2x15 Comments HEP wall slides Standing Exercise Name scapular wall slides Side bilateral Self-Care/Home Management Treatment Education Other Education Access Code: [email or web address] URL: [email or web address] [employer]/ PT-OP-T Assessment and Plan Start: 04/14/22 08:29 Freq: Status: Active Protocol: Document 05/06/22 10:34 AW (Rec: 05/06/22 11:17 AW [id number]) Physical Therapy Assessment Other Concerns Barriers to Rehabilitation Pt self-reports memory impairment but has no formal diagnosis. Goals Four Impairment lymphedema risk Engineering Technical Writer Goal (LTG) Pt will teach back about lymphedema precautions and signs of impaired lymph return . LTG Duration 06/14/22 Three Impairment strength Engineering Technical Writer Goal (LTG) Pt will improve RUE strength equal to LUE to promote return to recreational activities such as swimming. LTG Duration 06/14/22 Two Impairment ROM [facility]cf Goal (LTG) Pt will improve RUE ROM to within 5 degrees of LUE in abduction, extension, and internal rotation for improved ease of self-care. LTG Duration 06/14/22 One Impairment lacks HEP Chcf Goal (LTG) Pt will be independent with HEP to improve RUE ROM and strength. LTG Duration 06/14/22 Assessment Summary Assessment Continued to progress scapular control which is improving. Pt will keep appointment at end of May. Will call to cancel if feels comfortable moving forward independently. Physical Therapy Plan Frequency and Duration Frequency of Treatment 1-2x/week Duration of Treatment 2 months Plan of Care Start Date 04/14/22 Plan of Care End Date 06/14/22 Therapeutic Interventions Therapeutic Interventions Home Exercise Program,Joint Mobilizations,Lymphedema Management,Manual Therapy,Self -Care/Home Management,Soft Tissue Mobilization,Taping, Therapeutic Activities, Therapeutic Exercises Modalities Cold Pack/Ice Massage,Hot Packs,Ultrasound Next Visit Focus/Plan Next Note Type Treatment Note Next Visit Plan Continue working scapular stabilization with sidelying PNF through entire ROM. Review UT, pec stretches, consider adding lev scap stretch. Progress right shoulder strengthening with TB
--- NOTE | 2022-06-10 12:00 | PT.OTN ---
Current Diagnoses Malignant melanoma of right upper limb, including shoulder (06/10/22) Physical Therapy Treatment Note PT-OP-A Visit Information Start: 04/14/22 08:29 Freq: Status: Active Protocol: Document 06/10/22 10:24 AW (Rec: 06/10/22 12:00 AW [id number]) Out-Patient Physical Therapy Visit Information Visit Information Visit Type Discharge Summary Visit Start Time 11:15 Visit Stop Time 11:46 Total Visit Minutes 31 Visit Number 6 Number of EMPLOYMENT EVALUATOR/CASE MANAGER Visits 0 Evaluation Information Evaluation Date 04/14/22 PT-OP-B Current Condition Start: 04/14/22 08:29 Freq: Status: Active Protocol: Document 04/14/22 11:45 AW (Rec: 04/14/22 08:40 AW [id number]) Current Condition History of Current Condition Onset Date January 2022 Current Complaints decreased R shoulder and neck ROM, needs lymphedema screen/ education History of Current Condition On 01/14/22, Iraj had right axillary sentinel lymph node biopsy x 5 and wide local excision of right upper lateral arm for melanoma. Iraj had no post op pain except some mild axillary tenderness. She used ice to minimize swelling. She travelled to [place] for 2 months. She had rotator cuff surgery 5 -10 years ago (pt unable to recall exact date due to memory loss.). When she was 7 yo, she severed a tendon in her right pinky finger and her whole arm was immobilized for months. While in the cast, she fractured her clavicle. She believes she picked up some bad postural habits during that time frame. Prior Treatments and Tests Plan to follow up every four months with dermatology. Treatment Goals Patient/Caregiver Goals Pt hopes to preserve or improve her shoulder ROM. Ultimately, she would like to get back to swimming. 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 I feel wobbly when pulling my right arm through the water and I wish that were better. Patient Reported Progress Improving PT-OP-F Manual Assessment Start: 04/14/22 08:29 Freq: Status: Active Protocol: Document 04/14/22 11:45 AW (Rec: 04/14/22 12:08 AW [id number]) Manual Assessments Soft Tissue Assessment Soft Tissue Mobility Assessment Hypertonicity noted at bilateral upper traps and right cervical paraspinals, R levator scap. Mild axillary cording noted in pectoral/lat interval which may be contributing to ROM deficits. PT-OP-J Posture/Palpation/Skin Start: 04/14/22 08:29 Freq: Status: Active Protocol: Document 04/14/22 11:45 AW (Rec: 04/14/22 12:08 AW [id number]) Posture Evaluation Comments Posture Comments Pt sits and stands with forward head and rounded shoulders. Right scapula is anteriorly tilted and winged. Left scapula also wings but is less affected. Skin Assessment Incisional Assessment Incision Appearance/Comments Right lateral shoulder incision is well healed with some evidence of adhesion. Axillary incision is well healed with good mobility. PT-OP-K Range of Motion Start: 04/14/22 08:29 Freq: Status: Active Protocol: Document 04/14/22 11:45 AW (Rec: 04/14/22 12:15 AW [id number]) Cervical Spine Range of Motion Cervical Spine Active Degrees Testing Position Sitting Flexion 50 Extension 40 Rotation Left 53 Rotation Right 40 Lateral Flexion Left 30 Lateral Flexion Right 18 ROM Limitations Soft Tissue Tightness Shoulder Goniometric Range of Motion Shoulder Right Active Shoulder ROM WFL Yes Testing Position Sitting Flexion 154 Extension 25 Abduction 160 Internal Rotation Behind Back (text) T4 Comments Flexion and abduction wtih significant shoulder hiking. Left Active Shoulder ROM WFL Yes Testing Position Sitting Flexion 160 Extension 55 Abduction 173 Internal Rotation Behind Back (text) C7 Elbow/Forearm Range of Motion Elbow/Forearm bilat Elbow/Forearm ROM WFL Yes PT-OP-M Strength Start: 04/14/22 08:29 Freq: Status: Active Protocol: Document 04/14/22 11:45 AW (Rec: 04/14/22 12:15 AW [id number]) Shoulder Strength Shoulder Manual Muscle Testing Right Flexion 4+ Good+ Extension 4+ Good+ Abduction (C5) 4+ Good+ External Rotation 4+ Good+ Internal Rotation 4+ Good+ Left Flexion 5 Normal Extension 5 Normal Abduction (C5) 5 Normal External Rotation 5 Normal Internal Rotation 5 Normal PT-OP-N Lymphedema Start: 04/14/22 08:29 Freq: Status: Active Protocol: Document 04/14/22 11:45 AW (Rec: 04/14/22 12:15 AW [id number]) Lymphedema Measurements Upper Extremity Circumference Measurements Right Affected MCP 18 cm Dorsum of Hand 18.1 cm Wrist 16.6 cm 10 cm From Wrist Crease 19.4 cm 20 cm From Wrist Crease 24.7 cm 30 cm From Wrist Crease 26.8 cm 40 cm From Wrist Crease 27.8 cm Elbow Joint 25 cm Left Unaffected MCP 18 cm Dorsum of Hand 18.3 cm Wrist 16.6 cm 10 cm From Wrist Crease 19.3 cm 20 cm From Wrist Crease 24.3 cm 30 cm From Wrist Crease 26 cm 40 cm From Wrist Crease 27.3 cm Elbow Joint 24.1 cm PT-OP-Q Treatments Start: 04/14/22 08:29 Freq: Status: Active Protocol: Document 06/10/22 10:24 AW (Rec: 06/10/22 12:00 AW [id number]) Therapeutic Exercises Sitting Exercises pulleys Sitting Exercise Name pulleys - flexion, scaption Side right Comments cued full ROM, deep breath at end range Standing Exercises resisted GH extension Standing Exercise Name resisted GH extension Side bilateral Resistance TB3 Comments HEP GH extension Standing Exercise Name GH extension / lift off Side bilateral Equipment Used dowel Comments HEP wall slides Standing Exercise Name scapular wall slides Side bilateral Manual Therapy Treatment Other Other Manual Treatments ROM and strength assessments. Self-Care/Home Management Treatment Education Patient Education Home Exercise Program Other Education Access Code: [email or web address] URL: [email or web address]/ Reviewed HEP for independent performance. PT-OP-T Assessment and Plan Start: 04/14/22 08:29 Freq: Status: Active Protocol: Document 06/10/22 10:24 AW (Rec: 06/10/22 12:00 AW [id number]) Physical Therapy Assessment Other Concerns Barriers to Rehabilitation Pt self-reports memory impairment but has no formal diagnosis. Goals Four Impairment lymphedema risk Half-Way Goal (LTG) Pt will teach back about lymphedema precautions and signs of impaired lymph return . LTG Duration GOAL MET Three Impairment strength Half-Way Goal (LTG) Pt will improve RUE strength equal to LUE to promote return to recreational activities such as swimming. 06/10/22 - PROGRESSING: LUE 5/5 all planes. RUE 4/5-4+/5 all planes LTG Duration 06/14/22 PROGRESSING Two Impairment ROM Chief Of Harbor Patrol Goal (LTG) Pt will improve RUE ROM to within 5 degrees of LUE in abduction, extension, and internal rotation for improved ease of self-care. 06/10/22 PROGRESSING: RUE within 5 degrees in flexion and abduction. Pt continues to lack 10 degrees extension compared with LUE. LTG Duration 06/14/22 PROGRESSING One Impairment lacks HEP Chief Of Harbor [employer] Goal (LTG) Pt will be independent with HEP to improve RUE ROM and strength. 06/10/22 GOAL MET LTG Duration GOAL MET Assessment Summary Assessment River is feeling good about her improved ROM and strength. She has improved scapular control. She understands her lymphedema risks and takes appropriate precuations. She has returned to swimming on a limited basis. She is appropriate for discharge and will follow up with her PCP for any additional concerns. Physical Therapy Plan Frequency and Duration Frequency of Treatment 1-2x/week Duration of Treatment 2 months Plan of Care Start Date 04/14/22 Plan of Care End Date 06/14/22 Therapeutic Interventions Therapeutic Interventions Home Exercise Program,Joint Mobilizations,Lymphedema Management,Manual Therapy,Self -Care/Home Management,Soft Tissue Mobilization,Taping, Therapeutic Activities, Therapeutic Exercises Modalities Cold Pack/Ice Massage,Hot Packs,Ultrasound Discharge Physical Therapy Discharge Reasons Goals Met Discharge Comments Pt has progressed toward or met all goals. She is satisfied with her progress and remains well-engaged with her HEP. She will be discharged from this plan of care.
== END 2022-06-11 09:13 | disposition home or self-care (01) ==
LOC: PHYS 11:15
PROVIDERS: Family Provider Physician Assistant; PCP Physician Assistant; Referring Provider Physician Assistant; Visit Provider Physician Assistant
DX: C43.61 Malignant melanoma of right upper limb, including shoulder (principal)
CPT/HCPCS: 97110; 97112; 97161; 97535

== ENCOUNTER → 2022-11-25 09:27 | Outpatient (CLI) | payer MEDICARE, BC, SELFPAY ==
[2022-11-25 19:58] LABS: Add Manual Diff / Slide Review NO; Basophils Absolute Auto 0 /uL (0-100); Basophils Percent Auto 1.1 % (0-2); Eosinophils Absolute Auto 100 /uL (0-450); Eosinophils Percent Auto 2.2 % (2-4); Hematocrit 41.4 % (36-46); Lymphocytes Absolute Auto 1500 /uL (1100-4500); Mean Corpuscular HGB Conc 33.7 % (30-36); Mean Corpuscular Hemoglobin 32.6 PG (26-34); Mean Corpuscular Volume 96.5 fL (80-100); Monocytes Absolute Auto 400 /uL (0-900); Monocytes Percent Auto 10.1 % (3-14); Neutrophils Absolute Auto 1900 /uL (1500-7000); Neutrophils Percent Auto 48.6 % (50-75); Platelet Count 189 X10^3/uL (150-400); Red Blood Cell Count 4.29 X10^6/uL (4.0-5.2); Red Cell Distribution Width 13.3 % (11.6-14.8)
[2022-11-25 20:06] LABS: Alanine Aminotransferase 22 IU/L (<35); Albumin Globulin Ratio 1.6 (1.0-2.8); Alkaline Phosphatase 69 U/L (38-126); Aspartate Aminotransferase 31 IU/L (14-36); BUN Creatinine Ratio 22.4 (6-22); Bilirubin Total 0.4 mg/dL (0.2-1.3); Blood Urea Nitrogen 17 mg/dL (7-17); Calcium 8.9 mg/dL (8.4-10.2); Carbon Dioxide 30 mmol/L (22-32); Chloride 101 mmol/L (98-107); Cholesterol 205 mg/dL (140-199); Estimated Glomerular Filt Rate > 60 mL/min (>60); Globulin 2.5 g/dL (1.7-4.1); Glucose 74 mg/dL (80-110); HDL Cholesterol 89 mg/dL (40-60); HEMOLYSIS < 15 (0-50); LDL Cholesterol Calculated 108 mg/dL (<100); Potassium 4.3 mmol/L (3.4-5.1); Sodium 138 mmol/L (137-145); Total Protein 6.5 g/dL (6.3-8.2); Triglycerides 39 mg/dL (35-150)
[2022-11-25 20:30] LABS: TSH w/ Reflex to FT4 0.94 uIU/mL (0.47-4.68)
[2022-11-26 18:27] LABS: Hep C Virus Ab w/Reflex Quant NEGATIVE s/c (NEGATIVE)
[2022-11-29 14:43] LABS: Fecal Immunochemical Test Negative (Negative)
== END ==
PROVIDERS: Family Provider Physician Assistant; PCP Physician Assistant; Visit Provider Physician Assistant
DX: R79.89 Other specified abnormal findings of blood chemistry (principal); E78.5 Hyperlipidemia, unspecified; R06.00 Dyspnea, unspecified; H53.9 Unspecified visual disturbance; R63.4 Abnormal weight loss; Z11.59 Encounter for screening for other viral diseases; Z12.11 Encounter for screening for malignant neoplasm of colon
CPT/HCPCS: 80053; 80061; 82274; 84443; 85025; 86803